=== PATIENT | female | born 1955 | race Hispanic/Latino ===

== ENCOUNTER → 2018-05-25 | Outpatient (CLI) | payer OTHER ==
[~2018-05-25] MED LIST: Z.0.METOPROLOL SUC10 PO
--- NOTE | 2018-05-25 11:31 | Diagnostic Imaging Report ---
EXAM: Bone mineral density study 05/25/2018 10:07 AM INDICATION: \S\SCREENING COMPARISON: None FINDINGS: Evaluation of the left hip and lumbar spine was performed. The study is technically adequate. The patient's fracture risk is compared to an age-matched control. Left femoral neck bone mineral density: 0.90 g/cm2, T-score is 0.2, Z-score is 1.6. Left hip total bone mineral density: 0.995 g/cm2, T-score is 0.2, Z-score is 1.3. Lumbar spine total bone mineral density: 0.856 gm/cm2, T-score is -1.7, Z-score is 0.0. IMPRESSION: Bone mineralization by WHO Classification is osteopenia, the fracture risk is increased. Signed by: Dr. Mahad Ahumada MD on 05/25/2018 11:28 AM
== END ==
LOC: MAMMO 10:00
PROVIDERS: ATTEND Internal Medicine
DX: Z12.31 Encounter for screening mammogram for malignant neoplasm of breast (principal); M85.89 Other specified disorders of bone density and structure, multiple sites
CPT/HCPCS: 77067; 77080

== ENCOUNTER → 2019-05-26 | Outpatient (CLI) | payer MEDICARE ==
--- NOTE | 2019-05-28 08:33 | Diagnostic Imaging Report ---
#[id number] - [id number] #BILATERAL DIGITAL SCREENING MAMMOGRAM WITH CAD: 05/26/2019 CLINICAL: Routine screening. Comparison is made to exams dated: 05/25/2018 mammogram and 05/23/2017 mammogram - [facility]. Current study contains 4 films. The tissue of both breasts is predominantly fatty. Current study was also evaluated with a Computer Aided Detection (CAD) system. Benign appearing calcifications are noted bilaterally. There are benign vascular calcifications in both breasts. No significant masses, calcifications, or other findings are seen in either breast. IMPRESSION: BENIGN There is no mammographic evidence of malignancy. A 1 year screening mammogram is recommended. The patient will be notified by letter of the results. PATI THAKUR M.D. ct/penrad:05/27/2019 17:59:56 [employer] Teammate: Faiza GILLIAM)(Jez), [facility] letter sent: Normal Exam Mammogram BI-RADS: 2 Benign
== END ==
LOC: MAMMO 14:22
PROVIDERS: ATTEND Internal Medicine
DX: Z12.31 Encounter for screening mammogram for malignant neoplasm of breast (principal)
CPT/HCPCS: 77067

== ENCOUNTER → 2020-06-23 | Outpatient (CLI) | payer MEDICARE | LOC: MAMMO 14:34 | PROVIDERS: ATTEND Internal Medicine | DX: Z12.31 Encounter for screening mammogram for malignant neoplasm of breast (principal) | CPT/HCPCS: 77067 ==

== ENCOUNTER → 2021-06-29 | Outpatient (CLI) | payer MEDICARE | LOC: MAMMO 08:10 | PROVIDERS: ATTEND Internal Medicine | DX: Z12.31 Encounter for screening mammogram for malignant neoplasm of breast (principal) | CPT/HCPCS: 77067 ==

== ENCOUNTER → 2022-06-24 | Outpatient (CLI) | payer MEDICARE | LOC: MAMMO 08:02 | PROVIDERS: ATTEND Internal Medicine | DX: Z12.31 Encounter for screening mammogram for malignant neoplasm of breast (principal) | CPT/HCPCS: 77067 ==

== ENCOUNTER → 2022-07-04 | Outpatient (CLI) | payer MEDICARE | END | disposition home or self-care (01) | LOC: RAD 10:28 → EDSTATUS 07-19 16:11 | PROVIDERS: ATTEND Internal Medicine | DX: R07.89 Other chest pain (principal); Z53.9 Procedure and treatment not carried out, unspecified reason | CPT/HCPCS: 71046 ==

== ENCOUNTER → 2024-06-25 | Outpatient (REF) | payer MEDICARE ==
[~2024-06-25] MED LIST changes: +FENTANYL CITRATE/PF 100MCG/2 ML INJ ONE; +MIDAZOLAM HCL 2 MG/2 ML VIAL ONE
== END ==
LOC: MAMMO 09:44
PROVIDERS: ATTEND Family Medicine
DX: Z12.31 Encounter for screening mammogram for malignant neoplasm of breast (principal)
CPT/HCPCS: 77067; J2250; J3010

== ENCOUNTER → 2025-06-13 | Outpatient (REF) | payer MEDICARE ==
[~2025-06-13] MED LIST changes: -FENTANYL CITRATE/PF 100MCG/2 ML INJ ONE; -MIDAZOLAM HCL 2 MG/2 ML VIAL ONE
== END ==
LOC: MAMMO 09:37
PROVIDERS: ATTEND Family Medicine
DX: Z12.31 Encounter for screening mammogram for malignant neoplasm of breast (principal)
CPT/HCPCS: 77067